=== PATIENT | male | born 1975 | race Caucasian/White ===

== ENCOUNTER 2017-05-08 14:52 | Emergency (ER) | payer OTHER ==
[~2017-05-08] VITALS: Ht 180.3 cm; Wt 98.6 kg
[2017-05-08 15:19] VITALS: BP 172/97; TEMP 37; Ht 180.3 cm; Wt 98.6 kg
[2017-05-08] MEDS ORDERED: ESCI1TAB6 PO (15:54)
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
[2017-05-08 16:32] VITALS: PULSE 72; O2SAT 99
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
== END 2017-05-08 16:32 | disposition home or self-care (01) ==
LOC: C.EDB 14:54 → C.EDD 16:32
DX: S00.83XA Contusion of other part of head, initial encounter (principal); Y09 Assault by unspecified means